=== PATIENT | male | born 1975 | race Caucasian/White ===

== ENCOUNTER 2019-09-22 19:14 | Emergency (ER) | payer MEDICAID ==
[~2019-09-22] VITALS: Ht 167.6 cm; Wt 72.7 kg
[~2019-09-22 19:14] MED LIST: HYDR-4383 PO
[2019-09-22] MEDS ORDERED: dexamethasone 1mg tablet PO ONE (20:10)
[2019-09-22] MEDS ORDERED: ketorolac tromethamine 15mg/ml inj. IM ONE (20:10)
[2019-09-22] MEDS ORDERED: dexamethasone 4mg tablet PO ONE (20:10)
[2019-09-22] MEDS ORDERED: TAM75C PO (20:11)
[2019-09-22] MEDS ORDERED: ALBU8.5H8 IH (20:11)
[2019-09-22] MEDS ORDERED: AMOX500C2 PO (20:11)
[2019-09-22] MEDS ORDERED: BENZ-16 PO (20:11)
[2019-09-22] MEDS ORDERED: dexamethasone sod phosphate 10mg/ml inj PO STA (20:28)
--- NOTE | 2019-09-22 20:30 | NUR ---
pt to receive toradol im and decadron po and then dc. family with pt.
[2019-09-22 20:39] VITALS: BP 109/63
--- NOTE | 2019-09-22 20:55 | NUR ---
PT GIVEN TORADOL, REQUESTED TO LAY DOWN FOR A LITTLE WHILE AFTER GETTING THE SHOT.
--- NOTE | 2019-09-22 20:56 | NUR ---
PER CHRISTY DOZIER, PT TO TAKE THE PERSCRIBED TAMIFLU , ALTHOUGH WE DID NOT SCREEN FOR INFLUENZA.
== END 2019-09-22 21:15 | disposition home or self-care (01) ==
LOC: ER 19:19
DX: J02.9 Acute pharyngitis, unspecified (principal); Z98.890 Other specified postprocedural states; Z79.2 Long term (current) use of antibiotics; Z79.899 Other long term (current) drug therapy
CPT/HCPCS: 96372; 99283; J1100; J1885